=== PATIENT | female | born 1990 | race American Indian/Alaskan Native ===

== ENCOUNTER 2017-07-13 05:00 | Emergency (ER) | payer SELFPAY ==
[2017-07-13 07:17] VITALS: BP 140/84
--- NOTE | 2017-07-13 08:20 | Emergency Department Report ---
Minor Respiratory - HPI Chief Complaint: Sore Throat Stated Complaint: SORE THROAT,BODY ACHE,CHIL;LS Time Seen by Provider: 07/13/17 07:55 Duration: 1 Day Pain Location: Throat Severity: moderate Minor Respiratory: Yes Rhinorrhea, Yes Sore Throat, Yes Able to Tolerate Fluids , Yes Ear Pain (left), Yes Fever, No Cough, No Sick Contacts, No Hemoptysis, No Chest Pain, No Shortness of Breath Other History: This is a 26 y.o. female that presents with sore throat, chills, fever, and body aches for 1 day. Patient reports going to work yesterday feeling fine all day. When she got home from work she started feeling pain with swallowing and body aches. She was nausous but never vomited around 1999 last night. She took airborne and went to bed. She has not been around any other sick contacts. Denies vomiting, SOB, chest pain, abdominal pain, drooling, cough , and difficulty swallowing. ED Review of Systems ROS: Stated complaint: SORE THROAT,BODY ACHE,CHIL;LS Other details as noted in HPI Constitutional: chills, fever. denies: diaphoresis, malaise, weakness ENT: throat pain, congestion. denies: ear pain, dental pain, hearing loss, epistaxis Respiratory: denies: cough, shortness of breath, SOB with exertion, SOB at rest , stridor, wheezing Cardiovascular: denies: chest pain, palpitations, dyspnea on exertion, edema, syncope Endocrine: no symptoms reported Gastrointestinal: nausea. denies: abdominal pain, vomiting, diarrhea, constipation, hematochezia Musculoskeletal: myalgia (generalized body aches). denies: back pain, joint swelling, arthralgia Neurological: denies: headache, weakness, numbness, paresthesias, abnormal gait , vertigo Psychiatric: denies: anxiety, depression ED Past Medical Hx - Past Medical History Previous Medical History?: Yes Additional medical history: SARCODOSIS - Surgical History Past Surgical History?: No - Social History Smoking Status: Current Every Day Smoker Substance Use Type: None - Medications Home Medications: Home Medications Medication Instructions Recorded Confirmed Last Taken Type Amoxicillin/Potassium Clav 1 each PO BID 5 Days #10 tablet 07/13/17 Unknown Rx [Augmentin 875-125 Tablet] Cetirizine HCl [Zyrtec] 10 mg PO DAILY #30 tablet 07/13/17 Unknown Rx Fluticasone [Flonase] 1 spray NS QDAY #1 bottle 07/13/17 Unknown Rx Minor Respiratory Exam - Exam General: Vital signs noted. No distress. Alert and acting appropriately. HEENT: Yes Pharyngeal Erythema, Yes Moist Mucous Membranes, Yes Rhinorrhea ( turbinates congested bilaterally, clear discharge), Yes Maxillary Tenderness, No Pharyngeal Exudates, No Conjuctival Injection, No Frontal Tenderness Ear: Left EAC Pain, Neither TM Bulge, Neither TM Erythema, Neither EAC Discharge Neck: Yes Supple, No Adenopathy Lungs: Yes Good Air Exchange, No Wheezes, No Ronchi, No Stridor, No Cough, No Labored Respirations, No Retractions, No Use of Accessory Muscles, No Other Abnormal Lung Sounds Heart: Yes Regular, No Murmur Abdomen: Yes Normal Bowel Sounds, No Tenderness, No Peritoneal Signs Skin: No Rash, No Edema Neurologic: Alert and oriented, no deficits. Musculoskeletal: Unremarkable. ED Course Vital Signs 07/13/17 07:14 Temperature 99.3 F Pulse Rate 78 Blood Pressure 140/84 O2 Sat by Pulse 99 Oximetry ED Medical Decision Making - Medical Decision Making This is a 26 y.o. female that presents with sore throat, fever, chills, and body aches that started yesterday. Patient examined by me and stable. No distress noted. Rapid strep obtained and negative. Vitals stable. Physical findings susceptible for maxillary sinusitis and allergic rhinitis. Start augmentin 875/125 mg po bid x 5 days, flonase 50 mcg 1 spray in each nostril bid , and cetirizine 10 mg po daily. Discussed plan with patient and she agreed with plan to treat outpatient. Discharged home. Return to work tomorrow. Follow up with PCP in 48-72 hours. Critical care attestation.: If time is entered above; I have spent that time in minutes in the direct care of this critically ill patient, excluding procedure time. ED Disposition Clinical Impression: Maxillary sinusitis Qualifiers: Chronicity: acute Recurrence: non-recurrent Qualified Code(s): J01.00 - Acute maxillary sinusitis, unspecified Allergic rhinitis Qualifiers: Allergic rhinitis trigger: unspecified Allergic rhinitis seasonality: seasonal Qualified Code(s): J30.2 - Other seasonal allergic rhinitis Disposition: TO HOME OR SELFCARE Is pt being admited?: No Does the pt Need Aspirin: No Condition: Stable Instructions: Sinusitis (ED), Allergic Rhinitis (ED) Additional Instructions: Expect symptoms to improve within 3 or 4 days. There is no need for bed rest or isolation. Use tyleonl or ibuprofen for symptoms of sore throat, headache, and fever. Return to work in 24 hours of taking antibiotics. Follow up with Primary Care Provider in 48-72 hours. Prescriptions: Amoxicillin/Potassium Clav [Augmentin 875-125 Tablet] 1 each PO BID 5 Days #10 tablet Cetirizine HCl [Zyrtec] 10 mg PO DAILY #30 tablet Fluticasone [Flonase] 1 spray NS QDAY #1 bottle Referrals: [facility] [Outside] - 3-5 Days [facility] [Outside] - 3-5 Days [facility] [Outside] - 3-5 Days Forms: Work/School Release Form(ED) Time of Disposition: 09:07 Print Language: [id number]
== END 2017-07-13 09:22 | disposition home or self-care (01) ==
LOC: ED 05:00
DX: J32.0 Chronic maxillary sinusitis (principal); J30.9 Allergic rhinitis, unspecified; F17.200 Nicotine dependence, unspecified, uncomplicated
CPT/HCPCS: 87116; 87430; 99283